=== PATIENT | female | born 1985 | race Caucasian/White ===

== ENCOUNTER 2023-01-07 18:40 | Outpatient (CLI) | payer OTHER | END 2023-01-07 23:59 | disposition critical access hospital (66) | LOC: EMS 18:40 | DX: R07.9 Chest pain, unspecified (principal); R10.11 Right upper quadrant pain; R10.12 Left upper quadrant pain; M54.6 Pain in thoracic spine | CPT/HCPCS: A0425; A0427 ==

== ENCOUNTER 2023-01-07 19:06 | Emergency (ER) | payer OTHER ==
--- NOTE | 2023-01-07 19:19 | ED Physician Documentation ---
PD HPI ABD PAIN - Stated complaint Stated Complaint: CHEST/STERNAL PAIN - Chief complaint Chief Complaint: Cardiac - History obtained from History obtained from: Patient - Additional information Additional information: 37-year-old had eaten a ham sandwich with chips and then had sudden onset epigastric pain radiating to the back about 45 minutes ago. No vomiting. Never had it before. She has a history of tubal ligation and liposuction but no intra-abdominal surgeries otherwise. No personal history of heart disease but runs in the family. PD PAST MEDICAL HISTORY - Present Medications Home Medications: Ambulatory Orders Medication Instructions Recorded Confirmed No Known Home Medications 01/07/23 01/07/23 - Allergies Allergies/Adverse Reactions: Allergies Allergy/AdvReac Type Severity Reaction Status Date / Time No Known Drug Allergies Allergy Verified 01/07/23 19:14 PD ED PE NORMAL - Vitals Vital signs reviewed: Yes - General General: Alert and oriented X 3, Other (Appears uncomfortable but declining pain medication) - HEENT HEENT: PERRL, EOMI - Neck Neck: Supple, no meningeal sign, No bony TTP - Cardiac Cardiac: RRR, No murmur - Respiratory Respiratory: No respiratory distress, Clear bilaterally - Abdomen Abdomen: Other (Tender in the epigastrium and right upper quadrant without surgical signs) - Derm Derm: Normal color, Warm and dry - Extremities Extremities: No edema, No calf tenderness / cord - Neuro Neuro: Alert and oriented X 3, Normal speech - Psych Psych: Normal mood, Normal affect Results - Vitals Vitals: Vital Signs - 24 hr 01/07/23 01/07/23 01/07/23 19:13 19:21 21:00 Temperature 36.7 C Heart Rate 93 77 72 Respiratory 20 12 12 Rate Blood Pressure 140/121 H 127/82 H 118/79 O2 Saturation 100 100 100 Oxygen O2 Source Room air - EKG (time done) 1915 EKG releavant findings:: EKG personally interpreted by author of this note. Relevant findings are: Rate: Rate (enter#) (78) Rhythm: NSR [place]: Normal Intervals: Normal MI QRS: Normal Ischemia: Normal ST segments - Labs Labs: Laboratory Tests 01/07/23 01/07/23 01/07/23 19:35 19:50 19:50 WBC 9.3 RBC 4.51 Hgb 12.6 Hct 38.3 MCV 84.9 MCH 27.9 MCHC 32.9 RDW 13.6 Plt Count 354 MPV 9.8 Neut # (Auto) 7.3 H Lymph # (Auto) 1.3 L [place] # (Auto) 0.5 Eos # (Auto) 0.1 Baso # (Auto) 0.0 Absolute Nucleated RBC 0.00 Nucleated RBC % 0.0 Sodium 142 Potassium 3.4 L Chloride 107 Carbon Dioxide 27 Anion Gap 8.0 BUN 14 Creatinine 0.9 Estimated GFR (MDRD) 70 L Glucose 108 H Calcium 8.9 Total Bilirubin 0.4 AST 75 H ALT 42 Alkaline Phosphatase 70 Troponin I High Sens 2.5 Total Protein 6.1 L Albumin 4.0 Globulin 2.1 Albumin/Globulin Ratio 1.9 Lipase 17 Urine Color YELLOW Urine Clarity CLOUDY Urine pH 6.0 Ur Specific [place] 1.025 Urine Protein NEGATIVE Urine Glucose (UA) NEGATIVE Urine Ketones NEGATIVE Urine Occult Blood LARGE H Urine Nitrite NEGATIVE Urine Bilirubin NEGATIVE Urine Urobilinogen 1 (NORMAL) Ur Leukocyte Esterase NEGATIVE Urine RBC 11-25 H Urine WBC 0-3 Ur Squamous Epith Cells MANY Squamous H Urine Bacteria Few Ur Microscopic Review INDICATED Urine Culture Comments NOT INDICATED Urine HCG, Qual NEGATIVE - Rads (name of study) Single view chest x-ray is unremarkable. Relevant Findings:: Final report received, EMP independent interpretation of test PD Medical Decision Making - ED course ED course: 37-year-old presents with epigastric pain radiating to the back. Differential diagnosis is broad and includes ACS, dissection, intra-abdominal emergency but most closely would fit biliary colic. She declines pain medication on initial evaluation. Work-up here demonstrates normal CBC, CMP notable for very mild AST elevation, troponin negative. Urine with some blood but she is on her menses. Ultrasound per the [facility] shows a contracted gallbladder likely gallstones. On reevaluation she did want something for pain and she received 15 mg of IV Toradol. A bit later her pain was almost gone, this would suggest against something like dissection and given the above findings I do believe she has biliary colic. She and her were counseled on signs and symptoms to return for but also surgical follow-up. Given that her ultrasound here was with contracted gallbladder discussed with him that a surgeon may want a repeat ultrasound or other work-up prior to consideration for cholecystectomy. Departure - Departure Disposition: 01 Home, Self Care Clinical Impression: Chest pain, Biliary colic Condition: Good Record reviewed to determine appropriate education?: Yes Instructions: ED Abdominal Pain Gallstone Poss, ED Gallstone W Biliary Colic Follow-Up: [facility] [Provider Group] Comments: As discussed, this seems very much like biliary colic or gallstone attack. We did check your heart, there is no evidence of active heart disease. The ultrasound was limited as your gallbladder was contracted but our fabric inspector did feel like you had stones. Is reasonable to follow-up with a surgeon for evaluation for cholecystectomy (having your gallbladder out) but they may want you to have another ultrasound while fasting to prove the diagnosis of gallstones or other work-up prior to scheduling you for surgery. Follow-up with the surgeons, calling Monday for an appointment. You may need a referral from your primary care physician as well. Return if worse. Forms: PCP List
--- NOTE | 2023-01-07 19:40 | XRAY Report ---
PROCEDURE: Chest 1 View X-Ray INDICATIONS: chest pain TECHNIQUE: One view of the chest was acquired. COMPARISON: None. FINDINGS: Surgical changes and devices: None. Lungs and pleura: No pleural effusions or pneumothorax. Lungs are clear. Mediastinum: Mediastinal contours appear normal. Heart size is normal. Bones and chest wall: No suspicious bony lesions. Overlying soft tissues appear unremarkable. IMPRESSION: No acute cardiopulmonary process. Reviewed by: Mellisa Lubin MD on 01/07/2023 7:39 PM PDT Approved by: Mellisa Lubin MD on 01/07/2023 7:39 PM PDT Station ID: [id number]
[2023-01-07 19:48] LABS: BILIRUBIN,URINE NEGATIVE (NEGATIVE); GLUCOSE, URINE (UA) NEGATIVE (NEGATIVE); KETONES,URINE (UA) NEGATIVE (NEGATIVE); LEUKOCYTE ESTERASE, URINE NEGATIVE (NEGATIVE); NITRITE,URINE NEGATIVE (NEGATIVE); OCCULT BLOOD,URINE LARGE (NEGATIVE); PROTEIN,URINE NEGATIVE (NEGATIVE); UROBILINOGEN,URINE 1 (NORMAL) E.U./dL (NORMAL)
[2023-01-07 19:53] LABS: CLARITY,URINE CLOUDY (CLEAR); HCG UR QUAL NEGATIVE
[2023-01-07 20:07] LABS: BASOPHILS % (AUTO) 0.4 %; EOSINOPHILS # (AUTO) 0.1 10^3/uL (0.0-0.7); EOSINOPHILS % (AUTO) 1.3 %; HCT - HEMATOCRIT 38.3 % (37.0-47.0); HGB - HEMOGLOBIN 12.6 g/dL (12.0-16.0); LYMPHOCYTES # (AUTO) 1.3 10^3/uL (1.5-3.5); LYMPHOCYTES % (AUTO) 14.4 %; MEAN CORPUSCULAR HEMOGLOBIN 27.9 pg (27.0-31.0); MEAN CORPUSCULAR HGB CONC 32.9 g/dL (32.0-36.0); MEAN CORPUSCULAR VOLUME 84.9 fL (81.0-99.0); MEAN PLATELET VOLUME 9.8 fL (7.9-10.8); MONOCYTES # (AUTO) 0.5 10^3/uL (0.0-1.0); MONOCYTES % (AUTO) 5.2 %; NEUTROPHILS # (AUTO) 7.3 10^3/uL (1.5-6.6); NEUTROPHILS % (AUTO) 78.4 %; PLT - PLATELET COUNT 354 10^3/uL (130-450); RED BLOOD COUNT 4.51 10^6/uL (4.20-5.40); RED CELL DISTRIBUTION WIDTH 13.6 % (12.0-15.0); WHITE BLOOD COUNT 9.3 x10^3/uL (4.8-10.8)
[2023-01-07 20:18] LABS: BACTERIA,URINE Few /HPF (None Seen); SQUAMOUS EPITHELIAL CELL,UR MANY Squamous (<= Few); WBC,URINE 0-3 /HPF (0-5)
[2023-01-07 20:24] LABS: ALBUMIN/GLOBULIN RATIO 1.9 (1.0-2.2); BILIRUBIN,TOTAL 0.4 mg/dL (0.2-1.0); CALCIUM 8.9 mg/dL (8.5-10.3); CREATININE 0.9 mg/dL (0.6-1.3); POTASSIUM 3.4 mmol/L (3.5-4.5); TOTAL PROTEIN 6.1 g/dL (6.4-8.9)
[2023-01-07 20:27] LABS: TROPONIN I HIGH SENSITIVITY 2.5 ng/L (2.3-14.8)
[2023-01-07] MEDS ORDERED: KETOROLAC 15 MG/ML VIAL IVP STA (20:38)
--- NOTE | 2023-01-07 21:58 | Ultrasound Report ---
PROCEDURE: Abdomen Limited INDICATIONS: RUQ pain TECHNIQUE: Real-time focused scanning was performed of the abdomen, with image documentation. COMPARISONS: None. FINDINGS: Liver: Liver is normal in size and homogeneous in echotexture, diffusely hyperechoic consistent with fatty infiltration. Gallbladder: Poorly seen due to its contracted status, with the patient having eaten at approximately 1700 this early evening. Presence or absence of stones therefore is not effectively established.. Biliary ducts: Intrahepatic bile ducts are non-dilated. Extrahepatic bile duct caliber measures 4.5 mm. Normal is 6-7 mm or less in diameter, or 10 mm or less post-cholecystectomy. Pancreas: Visualized portions of the pancreas are sonographically normal. Right kidney: Normal in size and echotexture. Right kidney measures 10.5 cm long. No hydronephrosis or nephrolithiasis. No solid masses. No complex renal cystic lesions which require follow-up. Aorta: Visualized aorta is normal in caliber at less than 3 cm. IVC: Intrahepatic inferior vena cava is patent. Miscellaneous: No free abdominal fluid. IMPRESSION: Unremarkable abdominal ultrasound. The gallbladder is poorly seen due to its being contracted in this patient who has recently eaten. No definite evidence of acute tightness but accurate detection of gallstones is not possible in this ci rcumstance. Therefore, follow-up gallbladder ultrasound may be warranted with proper preparation of t he patient for that examination. Reviewed by: Garret Arboleda MD on 01/07/2023 9:57 PM PDT Approved by: Garret Arboleda MD on 01/07/2023 9:57 PM PDT Station ID: [id number]
[2023-01-07 22:02] VITALS: BP 126/83; O2SAT 98
== END 2023-01-07 21:55 | disposition home or self-care (01) ==
LOC: ED 19:06
DX: R07.9 Chest pain, unspecified (principal); K80.50 Calculus of bile duct without cholangitis or cholecystitis without obstruction
CPT/HCPCS: 36415; 80053; 81001; 81003; 81025; 83690; 84484; 85025; 87086; 93005; 96374; 99283

== ENCOUNTER 2023-03-08 06:20 | Day surgery (SDC) | payer OTHER ==
[2023-03-08] MEDS ORDERED: LACTATED RINGERS 1,000 ML IV ONE ×2 (06:30→12:17)
[2023-03-08] MEDS ORDERED: ceFAZolin 2 GM VIAL ONE (06:39)
[2023-03-08 06:55] LABS: HCG UR QUAL NEGATIVE
[2023-03-08] MEDS ORDERED: DEXAMETHASONE 4 MG/ML VIAL ONE (08:16)
[2023-03-08] MEDS ORDERED: ROCURONIUM 50 MG/5 ML VIAL ONE ×2 (08:16→11:24)
[2023-03-08] MEDS ORDERED: PROPOFOL 200 MG/20 ML VIAL IVP ONE ×2 (08:16→11:50)
[2023-03-08] MEDS ORDERED: ONDANSETRON 4 MG/2 ML VIAL ONE ×2 (08:16→12:38)
[2023-03-08] MEDS ORDERED: KETOROLAC 30 MG/ML VIAL ONE (08:16)
[2023-03-08] MEDS ORDERED: LIDOCAINE-PF 2% 10 ML AMP SUBQ ONE (08:16)
[2023-03-08] MEDS ORDERED: diphenhydrAMINE INJ 50 MG/ML VIAL ONE (08:16)
[2023-03-08] MEDS ORDERED: MIDAZOLAM 2 MG/2 ML VIAL ONE (08:17)
[2023-03-08] MEDS ORDERED: fentaNYL 100 MCG/2 ML VIAL ONE ×2 (08:17→10:59)
[2023-03-08] MEDS ORDERED: MORPHINE 2 MG/ML CARPUJECT IVP PRN (08:20)
[2023-03-08] MEDS ORDERED: METOCLOPRAMIDE 10 MG/2 ML VIAL IVP PRN (08:20)
[2023-03-08] MEDS ORDERED: NALOXONE 0.4 MG/ML VIAL IVP PRN (08:20)
[2023-03-08] MEDS ORDERED: fentaNYL 100 MCG/2 ML VIAL IVP PRN (08:20)
[2023-03-08] MEDS ORDERED: ONDANSETRON 4 MG/2 ML VIAL IVP PRN ×2 (08:20→12:16)
[2023-03-08] MEDS ORDERED: ATROPINE ABBOJECT 1 MG/10 ML SYRINGE IVP PRN (08:20)
[2023-03-08] MEDS ORDERED: ePHEDrine 50 MG/ML VIAL IVP PRN (08:20)
--- NOTE | 2023-03-08 08:20 | ANESTHESIA ---
Pre-Anesthesia VS, & Labs - Diagnosis gallstones - Procedure lap abdoul Vital Signs: Temp Pulse Resp BP Pulse Ox O2 Flow Rate 36.1 C L 79 14 121/91 H 97 0 03/08/23 06:51 03/08/23 06:51 03/08/23 06:51 03/08/23 06:51 03/08/23 06:51 03/08/23 06:51 Height: 5 ft 2 in Weight (kg): 96 kg Body Mass Index: 38.7 BMI Classification: Obese - NPO >8 hours - Is Patient ?: No Home Medications and Allergies Home Medications: Ambulatory Orders Multivitamin/Iron/Folic Acid [Centrum Women Tablet] 1 each PO DAILY 02/27/23 Multivitamin/Iron/Folic Acid [Centrum Women Tablet] 1 each PO DAILY 02/27/23 Allergies/Adverse Reactions: Allergies Allergy/AdvReac Type Severity Reaction Status Date / Time No Known Drug Allergies Allergy Verified 01/07/23 19:14 Anes History & Medical History - Anesthetic History Anesthesia Complications: reports: No previous complications Family history of Anesthesia Complications: Denies Family history of Malignant Hyperthermia: Denies - Medical History Cardiovascular: reports: None Pulmonary: reports: None Gastrointestinal: reports: Cholelithiasis Urinary: reports: None Musculoskeletal: reports: Other Endocrine/Autoimmune: reports: None Skin: reports: None Smoking Status: Never smoker Psychosocial: reports: No issues indicated History of Cancer?: No - Surgical History Gynecologic: reports: Tubal ligation, Other Other Past Surgical History: tummy tuck Exam General: Alert, Oriented x3, Cooperative Dental: WNL Mouth Openin Fingerbreadth Neck Mobility: Normal Mallampati classification: II Thyromental Distance: 4-6 cm Respiratory: Lungs clear Cardiovascular: Regular rate Plan Anesthesia Type: General Consent for Procedure(s) Verified and Reviewed: Yes Code Status: Attempt Resuscitation ASA classification: 2-Mild systemic disease Is this case an emergency?: No
[2023-03-08] MEDS ORDERED: BUPIVACAINE 0.25% PF 30 ML VIAL ONE (08:29)
[2023-03-08] MEDS ORDERED: LACTATED RINGERS 1,000 ML IV SCH (09:00)
[2023-03-08] MEDS ORDERED: ACETAMINOPHEN 1,000 MG/100 ML 1,000 MG/100 ML BAG IV ONE (10:38)
[2023-03-08] MEDS ORDERED: BUPIVACAINE 0.25% PF 30 ML VIAL SUBQ ONE ×3 (10:42)
[2023-03-08] MEDS ORDERED: SUGAMMADEX 200 MG/2 ML VIAL IVP ONE (11:57)
[2023-03-08] MEDS ORDERED: HYDROcod/ACETAM 5/325 MG TABLET PO PRN (12:16)
[2023-03-08] MEDS ORDERED: oxyCODONE 5 MG TABLET PO PRN (12:16)
[2023-03-08] MEDS ORDERED: HYDROmorphone 0.5 MG/0.5 ML SYRINGE IVP PRN (12:16)
--- NOTE | 2023-03-08 12:21 | OPERATIVE REPORT ---
Operative Report - General Procedure Date: 03/08/23 Planned Procedure: lap abdoul Pre-Op Diagnosis: chronic cholecystitis Procedure Performed: lap abdoul extra degree difficulty Post Op Diagnosis: chronic cholecystitis - Procedure Note Primary Surgeon: rian luna Anesthesia Technique: General ET tube, Local Pathology: gallbladder Estimated Blood Loss (mL): 2 Drain/Tube Type: Other (none) Indications: gallbladder pain. gallbladder full of large stones Findings: significant chronic inflammation with gallbladder stuck to hepatic artery gallbladder packed tight and distended with large stones Complications: none - Other Other Information/Narrative: The patient was properly identified, brought to the operating room and placed in supine position. Sequential compression devices were placed. General endotracheal anesthesia was induced. The patient was prepped and draped in a sterile fashion and given preoperative antibiotics. Local anesthetic was given to incision areas. An incision was made in the periumbilical area. Dissection proceeded down to fascia. The fascia was incised lifted upwards and abdomen entered with a Veress needle. CO2 was insufflated to a pressure of 15. An 11 mm trocar followed by a 30 degree scope was placed. There was no evidence of injury from Veress needle or trocar placement. Under direct vision 2 5 mm trochars were placed in the right upper quadrant and an 11 mm trocar was placed in the epigastrium. Body of the gallbladder was retracted anterior. Lateral attachments were partially taken down further mobilizing the gallbladder more anterior and away from the duodenum. The patient's gallbladder was packed tightly with large stones. The gallbladder wall was quite thickened. It was difficult to grasp the gallbladder. The gallbladder was distended down onto the common bile duct. The gallbladder was carefully mobilized more anterior and off from the liver by taking down the lateral attachments. Laparoscopic Kit[place] was also used. With the chronic inflammation there were a few very small arterial which were clipped. These measured less than 1 mm. Clip was also placed at a lymph node. Gallbladder was carefully peeled further away from the common hepatic duct. Gallbladder was adherent to the common hepatic artery over an area of nearly 4 cm. It was carefully peeled off from the common hepatic artery. Eventually a large bare cystic plate area or window was carefully developed after approximately 1 hour of dissection. The cystic duct was relatively short however not dilated and soft. The cystic artery was clipped right at the gallbladder and x2 slightly proximal and sharply divided. The cystic duct was clipped at the gallbladder and x3 slightly proximal and sharply divided. Gallbladder was further mobilized and peeled off from the liver bed with use of blunt dissection and hook cautery. The gallbladder was placed in Endo Catch bag and brought out through the epigastric trocar site. Hemostasis was assured. Trochars were removed under direct vision. Fascia at the larger trocar sites was closed with [id number] are running 0 Vicryl suture. Subcutaneous tissue was irrigated and skin closed with interrupted 4-0 Monocryl. Dressings were applied. Patient tolerated the procedure well was awakened and brought to recovery in good condition.
[2023-03-08] MEDS: HYDROmorphone 0.5 MG/0.5 ML SYRINGE IVP PRN ×2 (12:40→13:04)
[2023-03-08] MEDS ORDERED: HYDROmorphone 0.5 MG/0.5 ML SYRINGE ONE ×2 (12:49→13:14)
[2023-03-08] MEDS ORDERED: oxyCODONE 5 MG TABLET ONE (13:57)
--- NOTE | 2023-03-08 14:13 | ANESTHESIA POST OP EVALUATION ---
Anesthesia Post Eval - Post Anesthesia Eval Vitals: Last Vital Signs Temp 37.3 C 03/08/23 13:45 Pulse 79 03/08/23 13:45 Resp 14 03/08/23 13:45 BP 120/70 03/08/23 13:45 Pulse Ox 99 03/08/23 13:45 O2 Flow Rate 0 03/08/23 06:51 CV Function Including HR & BP: Stable Pain Control: Satisfactory Nausea & Vomiting: Negative Mental Status: Baseline Respiratory Status: Airway Patent Hydration Status: Satisfactory Anesthesia Complications: None
[2023-03-08 14:48] VITALS: BP 119/70; O2SAT 98
== END 2023-03-08 06:21 | disposition home or self-care (01) ==
LOC: SDS 06:20
PROVIDERS: ATTEND Surgery
PROC: 0FT44ZZ Resection of Gallbladder, Percutaneous Endoscopic Approach (ICD-10-PCS; principal; 2023-03-08 08:30)
DX: K80.10 Calculus of gallbladder with chronic cholecystitis without obstruction (principal); E66.9 Obesity, unspecified; Z68.38 Body mass index [BMI] 38.0-38.9, adult
CPT/HCPCS: 47562; 81025; A9270; J0131; J1170; J1200; J7120

== ENCOUNTER 2023-05-04 17:36 | Emergency (ER) | payer OTHER ==
[2023-05-04 17:58] VITALS: BP 148/89; O2SAT 98
--- NOTE | 2023-05-04 20:52 | ED Physician Documentation ---
PD HPI SKIN - Stated complaint Stated Complaint: LT SIDE PX,NAUSEA,DIZZINESS - Chief complaint Chief Complaint: Wound - History obtained from History obtained from: Patient - Additional information Additional information: 37-year-old female presents emergency department for a lump on her side. She said that she has had this for months and has been trying to get in with her primary care provider but is unable to get in with PCP until June. There is no new signs of infection no erythema no new tenderness she is just worried that a provider needs to see it before June as she is concerned about possible cancer. She has had no unintentional weight loss no consistent night sweats no family history of cancer no significant past medical. 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, Other - Present Medications Home Medications: Ambulatory Orders Medication Instructions Recorded Confirmed No Known Home Medications 05/04/23 05/04/23 - Allergies Allergies/Adverse Reactions: Allergies Allergy/AdvReac Type Severity Reaction Status Date / Time clearisel Allergy Rash Uncoded 05/04/23 17:56 - Social History Does the pt smoke?: No Smoking Status: Never smoker Does the pt drink ETOH?: No Does the pt have substance abuse?: No - Immunizations Immunizations are current?: No PD ED PE NORMAL - Vitals Vital signs reviewed: Yes - General General: Alert and oriented X 3, No acute distress, Well developed/nourished - Abdomen Abdomen: Normal bowel sounds, Non tender - Derm Derm: Normal color, Warm and dry - Free text exam Free text exam: On patient's left side there is about a 3 cm mass that is mobile with palpation. It is soft to the touch, there is no erythema, no drainage and it is not tender to the touch, Results - Vitals Vitals: Vital Signs - 24 hr 05/04/23 17:51 Temperature 37 C Heart Rate 85 Respiratory 16 Rate Blood Pressure 148/89 H O2 Saturation 98 Oxygen O2 Source Room air PD Medical Decision Making - ED course ED course: 37-year-old female presents the emergency department for concerns of chronic left lump on her side. The lump is located inferior to the axillary region right around the bra strap line. It is mobile and soft and there is no tenderness with palpation. I do not believe that this is an abscess given that there is no erythema and it feels fairly deep. This is most likely a lipoma given the presentation. She is told to follow-up with her primary care provider for further evaluation of this, there is no emergent interventions warranted at this time. She is relieved to hear that this is most likely a lipoma and said that she will call to get in with her primary care provider for further evaluation as needed. Departure - Departure Disposition: 01 Home, Self Care Clinical Impression: Lipoma Qualifiers: Lipoma location: trunk Qualified Code(s): D17.1 - Benign lipomatous neoplasm of skin and subcutaneous tissue of trunk Instructions: ED Lipoma Comments: Thank you for trusting us with your care. I believe the lump you are Feeling on your side is most likely a lipoma. As we discussed and follow-up with your primary care provider for further evaluation of this and they can order outpatient imaging. At this time you are safe for discharge. As we discussed continue to keep an eye on it if it starts to get red, hot, increases in size severely over a very short period of time or you are starting to develop any unintentional weight loss please come back to the emergency department for further evaluation. Forms: PCP List Discharge Date/Time: 05/04/23 21:03
== END 2023-05-04 21:03 | disposition home or self-care (01) ==
LOC: ED 17:36
DX: D17.1 Benign lipomatous neoplasm of skin and subcutaneous tissue of trunk (principal)
CPT/HCPCS: 99281; 99283

== ENCOUNTER 2024-01-08 11:57 | Emergency (ER) | payer OTHER ==
--- NOTE | 2024-01-08 12:06 | ED Physician Documentation ---
History of Present Illness - Stated complaint Stated Complaint: LOWER R SIDE PX - Chief complaint Chief Complaint: Back Pain - History obtained from History obtained from: Patient - Additonal information Additional information: This is a very nice 38-year-old female who presents with right lower back pain rating into the right buttocks and down the right leg. Symptoms have been present for about 2 weeks now. She states no acute injury but just woke up 1 day and started to feel the pain and it has not gotten any better. She was seen in the clinic on 12/29/2023 for the same issue and was given a Toradol shot which she does not feel was terribly helpful, and was advised to take Tylenol and naproxen as needed. She has been taking medication, usually alternating throughout the day which does provide some relief but does not give resolution of the pain. She has not taken any medication today however. She continues to have the pain, it is fairly unchanged from prior. She has no saddle anesthesia, no difficulty ambulating, and the pain is worse when she is lying down. She is unable to find a comfortable position at night to sleep. She denies any lifting twisting falls trauma no history of IV drug use, no fever or chills, no weight loss. She has a follow-up appoint with her PCP in 2 days. Review of Systems Constitutional: reports: Reviewed and negative Eyes: reports: Reviewed and negative Ears: reports: Reviewed and negative Nose: reports: Reviewed and negative Throat: reports: Reviewed and negative Cardiac: reports: Reviewed and negative Respiratory: reports: Reviewed and negative GI: reports: Reviewed and negative : reports: Reviewed and negative Skin: reports: Reviewed and negative Musculoskeletal: reports: Back pain Neurologic: reports: Reviewed and negative Psychiatric: reports: Reviewed and negative PD PAST MEDICAL HISTORY - Past Medical History Past Medical History: Yes Cardiovascular: None Respiratory: None Endocrine/Autoimmune: None GI: Cholelithiasis : None HEENT: None Psych: None Musculoskeletal: Other Derm: None - Past Surgical History Past Surgical History: Yes 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, Other - Present Medications Home Medications: Ambulatory Orders Medication Instructions Recorded Confirmed Cyclobenzaprine [Flexeril] 10 mg PO TID PRN #20 tablet 01/08/24 - Allergies Allergies/Adverse Reactions: Allergies Allergy/AdvReac Type Severity Reaction Status Date / Time clearisel Allergy Rash Uncoded 01/08/24 12:00 - Social History Does the pt smoke?: No Smoking Status: Never smoker Does the pt drink ETOH?: No Does the pt have substance abuse?: No - Immunizations Immunizations are current?: No PD ED PE NORMAL - Vitals Vital signs reviewed: Yes - General General: Alert and oriented X 3, No acute distress, Well developed/nourished - HEENT HEENT: Atraumatic, Moist mucous membranes - Cardiac Cardiac: RRR, No murmur - Respiratory Respiratory: No respiratory distress, Clear bilaterally - Back Back: No CVA TTP, No spinal TTP, Other (Right lumbosacral and right buttocks tenderness to palpation, no spasming . Negative SLR testing, normal gait, no foot drop) - Derm Derm: Normal color, Warm and dry, No rash - Extremities Extremities: No deformity, No tenderness to palpate, Normal ROM s pain, No edema, No calf tenderness / cord - Neuro Neuro: Alert and oriented X 3 Eye Opening: Spontaneous Motor: Obeys Commands Verbal: Oriented GCS Score: 15 - Psych Psych: Normal mood, Normal affect Results - Vitals Vitals: Vital Signs - 24 hr 01/08/24 12:00 Temperature 36.5 C Heart Rate 82 Respiratory 18 Rate Blood Pressure 150/92 H O2 Saturation 100 Oxygen O2 Source Room air PD Medical Decision Making - ED course Complexity details: reviewed results, re-evaluated patient, considered differential ED course: 38-year-old female presents with right lower back pain rating into the right hip and down the right leg as described in HPI. This has been present for about 2 weeks. She has had little improvement with ibuprofen and Tylenol. On exam, patient has pain directly over the sciatic nerve, there is no right leg weakness or foot drop, saddle anesthesia or other signs of cauda equina syndrome, she has no risk factors for osteomyelitis or epidural abscess. She likely has a lumbar directed colopathy/sciatica. Advised that this typically takes quite some time to get better and she should continue supportive measures but I strongly recommend stretching and physical therapy/rehab exercises as this can take quite some time to get better. At this time there is no indication for emergent imaging. I recommend keeping her follow-up appointment with her PCP on Monday to discuss referral to physical therapy. Offered muscle relaxers and a repeat Toradol shot which she agreed to. I do not recommend steroids at this point in time due to the risks outweighing any potential benefit. I discussed return precautions if new or worsening symptoms patient discharged home in stable condition. Departure - Departure Disposition: 01 Home, Self Care Clinical Impression: Right-sided low back pain with sciatica Qualifiers: Chronicity: acute Sciatica laterality: sciatica of right side Qualified Code(s): M54.41 - Lumbago with sciatica, right side Condition: Good Instructions: ED Sciatica Prescriptions: Cyclobenzaprine [Flexeril] 10 mg PO TID PRN #20 tablet PRN Reason: Spasms Comments: Continue to take the Tylenol and naproxen or ibuprofen as needed for your pain. Sciatic type pain typically takes quite a long time to improve, and requires diligent stretching and physical therapy exercises. Talk with your doctor on Monday about referral to physical therapy. Sometimes specialized massages can be helpful for this pain as well. I have ordered muscle relaxers and as we discussed it can make you quite drowsy so you may take them only at nighttime at first until you see how you react to them. Discharge Date/Time: 01/08/24 12:30
[2024-01-08 12:17] VITALS: BP 150/92; O2SAT 100
[2024-01-08] MEDS: KETOROLAC 30 MG/ML VIAL IM STA (12:22)
== END 2024-01-08 12:30 | disposition home or self-care (01) ==
LOC: ED 11:57
DX: M54.41 Lumbago with sciatica, right side (principal)
CPT/HCPCS: 96372; 99283

== ENCOUNTER 2024-01-19 13:28 | Outpatient (CLI) | payer OTHER ==
--- NOTE | 2024-01-21 03:55 | MRI Report ---
PROCEDURE: Lumbar Spine WO INDICATIONS: LUMBAGO TECHNIQUE: Noncontrast sagittal T1 spin echo and T2 fast echo, sagittal STIR, axial T1 and T2 fast spin echo thr ough the lumbar spine. In cases with scoliosis, additional coronal T2 fast spin echo may be performe d. COMPARISON: None. FINDINGS: Image quality: Excellent. Alignment and Curvature: There is normal bony alignment. Bone Marrow: Marrow is of normal overall signal. No acute vertebral body compression fractures. Spinal Cord: Conus medullaris terminates at the L1 level. Visualized cord demonstrates normal signa l and size. Paraspinous Soft Tissues: No paravertebral masses. Possible left ovarian cyst is seen and measures 2.5 x 2.3 cm in size. T12-L1: Normal in appearance. L1-L2: Normal in appearance. L2-L3: Normal in appearance. L3-L4: Normal in appearance. L4-L5: Broad-based disc bulge and bilateral facet arthrosis is seen with mild bilateral neural fora rick narrowing and mild central canal stenosis. L5-S1: Central to right-sided disc bulge and bilateral facet arthrosis with mild central canal sten osis and right-sided neural foraminal narrowing. IMPRESSION: Spondylitic changes at L4-5 and L5-S1 levels causing mild central canal stenosis and neural foraminal narrowing as described above. No marrow edema. No acute compression fracture or spondylolisthesis. Possible left ovarian cyst suggests clinical correlation. Reviewed by: Gagan Rm MD on 01/21/2024 3:54 AM PDT Approved by: Gagan Rm MD on 01/21/2024 3:54 AM PDT Station ID: [id number]
== END 2024-01-19 13:29 | disposition home or self-care (01) ==
LOC: DI 13:28
PROVIDERS: ATTEND Family Medicine
DX: M51.36 Other intervertebral disc degeneration, lumbar region (principal); M48.061 Spinal stenosis, lumbar region without neurogenic claudication; M47.816 Spondylosis without myelopathy or radiculopathy, lumbar region; M51.37 Other intervertebral disc degeneration, lumbosacral region; M48.07 Spinal stenosis, lumbosacral region; M47.817 Spondylosis without myelopathy or radiculopathy, lumbosacral region